=== PATIENT | female | born 1985 | race Caucasian/White ===

== ENCOUNTER 2016-09-19 18:07 | Emergency (ER) | payer OTHER ==
[2016-09-19 18:46] LABS: Bilirubin NEGATIVE (NEGATIVE); Blood NEGATIVE Ery/ul (0-5); COMPLETE URINE MICROSCOPIC? YES; Collection Type CCMS; Glucose NEGATIVE (NEGATIVE); Leukocyte Esterase NEGATIVE (NEGATIVE)
[2016-09-19 18:53] LABS: BASOPHIL % 0.3 % (0.0-0.4); Eosinophil % 0.1 % (0.00-5.0); Granulocytes % 71.6 % (36.0-66.0); Lymphocytes % 18.4 % (24.0-44.0); Mean Cell Volume 88.3 fl (78-100); Mean Corpuscular Hemoglobin 29.7 pg (26-32); Mean Platelet Volume 13.9 fl (6-9.5); Monocytes % 9.6 % (0.0-12.0); Platelet Count 142 K/mm3 (150-450); Red Blood Count 4.72 M/mm3 (4.1-5.4); Red Cell Distribution Width 13.3 % (11.5-14.0); White Blood Count 11.4 K/mm3 (4.0-10.5)
--- NOTE | 2016-09-19 19:00 | ERPHSYRPT ---
- History of Present Illness Source: patient, family (boyfriend) Patient Subjective Stated Complaint: pt states she seen obgyn today and was given a z-pack for sinusitis. pt c/o headache and not feeling well with sinus drainage. Triage Nursing Assessment: pt pink, warm, dry. 27 weeks . pt afebrile. lung sounds clear and equal. states baby has been moving wnl today. Hx Tetanus, Diphtheria Vaccination/Date Given: Yes (up to date) Hx Influenza Vaccination/Date Given: No Hx Pneumococcal Vaccination/Date Given: No Immunizations Up to Date: Yes <ALBERT GRACIA - Last Filed: 09/19/16 19:06> <ALBERT HALE - Last Filed: 09/19/16 19:52> - History of Present Illness Time Seen by Provider: 09/19/16 18:15 Physician History: CC: nasal congestion HX; 30 y/o patient of Dr Loya is at 27 weeks gestation. She has 5 day hx of cold symptoms, sinus drng, and nasal congestion. No fever or chills. Mouth feels swollen. No diff breathing or swallowing. Minimal cough. She was seen in office today and given Zpack and took one dose today. She had some protein in urine so got scared and came to ER. No other complaints. No prior hx of toxemia. (ALBERT GRACIA) Allergies/Adverse Reactions: amoxicillin Adverse Reaction (Verified 09/19/16 18:18) clavulanic acid [From Augmentin] Adverse Reaction (Verified 09/19/16 18:18) Home Medications: Azithromycin 250 mg PO DAILY 09/19/16 [History] - Review of Systems Constitutional: No Fever, No Chills Eyes: No Symptoms Ears, Nose, & Throat: Nose Congestion Respiratory: No Dyspnea Cardiac: No Chest Pain Abdominal/Gastrointestinal: No Abdominal Pain, No Nausea, No Vomiting Skin: No Rash Neurological: No Headache All Other Systems: Reviewed and Negative <ALBERT GRACIA - Last Filed: 09/19/16 19:06> - Past Medical History Pertinent Past Medical History: Yes Psycho-Social History: Anxiety - Past Surgical History Past Surgical History: Yes Female Surgical History: Section Other Surgical History: dental extrations - Social History Smoking Status: Former smoker Exposure to second hand smoke: No Drug Use: none Patient Lives Alone: No - Female History Hx Last Menstrual Period: mar 2016 Expected Date of Delivery: 12/17/16 <ALBERT GRACIA - Last Filed: 09/19/16 19:06> - Physical Exam General Appearance: alert Eye Exam: PERRL/EOMI Ears, Nose, Throat Exam: normal ENT inspection, moist mucous membranes Neck Exam: normal inspection, non-tender, supple Respiratory Exam: normal breath sounds, lungs clear Cardiovascular Exam: regular rate/rhythm Gastrointestinal/Abdomen Exam: soft, No tenderness, No distention Extremity Exam: normal inspection, normal range of motion, No calf tenderness, No pedal edema Neurologic Exam: alert, oriented x 3, cooperative, sensation nml, No motor deficits Skin Exam: warm, dry, No rash SpO2 Interpretation: normal SpO2: 98 Oxygen Delivery: Room Air <ALBERT GRACIA - Last Filed: 09/19/16 19:06> - Course Nursing assessment & vital signs reviewed: Yes <ALBERT GRACIA - Last Filed: 09/19/16 19:06> - Progress Counseled pt/family regarding: lab results, diagnosis, need for follow-up <ALBERT GRACIA - Last Filed: 09/19/16 19:06> <ALBERT HALE - Last Filed: 09/19/16 19:52> - Progress Progress Note: 09/19/16 18:58 Will check labs. Explained to pt that cold symptoms will take time, continue zpack as prescribed by her doctor. 100 protein on UA here. Chem sent. Will need OP follow up with her OB. 09/19/16 19:[address] Hale for further care and disposition. LAbs pending. BP up some. (ALBERT GRACIA) 09/19/16 19:[address] LOYA AT 1950 WHO STATES PATIENT CAN CALL OFFICE FOR FOLLOWUP APPOINTMENT URINE DRUG SCREEN + THC (ALBERT HALE) - Departure Departure Disposition: Home Critical Care Time: No <ALBERT GRACIA - Last Filed: 09/19/16 19:06> - Departure Time of Disposition: 19:55 Critical Care Time: No <ALBERT HALE - Last Filed: 09/19/16 19:52> - Departure Clinical Impression: 27 weeks gestation of Upper respiratory infection Qualifiers: URI type: unspecified viral URI Qualified Code(s): J06.9 - Acute upper respiratory infection, unspecified Proteinuria Qualifiers: Proteinuria type: gestational Trimester: second trimester Qualified Code(s): O12.12 - Gestational proteinuria, second trimester Condition: Stable Referrals: FRANCIS LOYA [Primary Care Provider] - Instructions: Viral Upper Respiratory Infection -- Adult, -- Discomforts and Remedies Additional Instructions: Call Dr Loya tomorrow for follow up. Continue your zpack as already directed. TAKE TYLENOL EVERY 4 HOURS NEEDED FOR PAIN DISCOMFORT.
[2016-09-19 19:01] LABS: Epithelial Cells MANY /HPF (FEW); Mucus SLIGHT /HPF (NEGATIVE); WBC 0-2 /HPF (0-5)
[2016-09-19 19:02] LABS: ADD URINE CULTURE? NO (NO); Bacteria FEW /HPF (NEGATIVE)
[2016-09-19 19:08] LABS: ALBUMIN 2.1 g/dL (3.4-5.0); ALKALINE PHOSPHATASE 157 U/L (46-116); ANION GAP 14.8 MEQ/L (5-15); BLOOD UREA NITROGEN 12 mg/dL (9-20); CHLORIDE 103 mEq/L (98-107); Carbon Dioxide 23.8 mEq/L (21-32); Glucose 88 MG/DL (70-110); Potassium 4.1 mEq/L (3.5-5.1); SGOT/AST 19 U/L (15-37); SODIUM 138 mEq/L (136-145); Total Protein 6.6 gm/dL (6.4-8.2)
[2016-09-19 19:16] LABS: SGPT/ALT 16 U/L (12-78)
[2016-09-19 20:05] VITALS: BP 154/96; PULSE 86; O2SAT 98
== END 2016-09-19 20:04 | disposition home or self-care (01) ==
LOC: ED 18:07
DX: J06.9 Acute upper respiratory infection, unspecified (principal); O12.12 Gestational proteinuria, second trimester; Z3A.27 27 weeks gestation of pregnancy
CPT/HCPCS: 36415; 80053; 80307; 81000; 84550; 85025; 99283